=== PATIENT | male | born 1950 | race Two or more races ===

== ENCOUNTER → 2017-04-07 | Outpatient (CLI) | payer OTHER, MEDICAID ==
[~2017-04-07] VITALS: Ht 162.6 cm; Wt 61.7 kg
== END | disposition home or self-care (01) ==
LOC: Rad HDHVI 10:27
PROVIDERS: ATTEND Internal Medicine Cardiovascular Disease
DX: I10 Essential (primary) hypertension (principal); I25.10 Atherosclerotic heart disease of native coronary artery without angina pectoris; K46.9 Unspecified abdominal hernia without obstruction or gangrene; H26.9 Unspecified cataract; Z98.62 Peripheral vascular angioplasty status
CPT/HCPCS: 78452; 93017; 96374; A9500

== ENCOUNTER → 2017-04-26 | Outpatient (CLI) | payer OTHER, MEDICAID | END | disposition home or self-care (01) | LOC: Rad HDHVI 11:16 | PROVIDERS: ATTEND Internal Medicine Cardiovascular Disease | DX: I70.299 Other atherosclerosis of native arteries of extremities, unspecified extremity (principal); I25.5 Ischemic cardiomyopathy; I42.0 Dilated cardiomyopathy | CPT/HCPCS: 93926 ==

== ENCOUNTER → 2017-04-28 | Outpatient (CLI) | payer OTHER, MEDICAID | END | disposition home or self-care (01) | LOC: Rad HDHVI 09:07 | PROVIDERS: ATTEND Internal Medicine Cardiovascular Disease | DX: I08.1 Rheumatic disorders of both mitral and tricuspid valves (principal) | CPT/HCPCS: 93306 ==

== ENCOUNTER → 2017-09-19 | Outpatient (CLI) | payer OTHER, MEDICAID ==
[~2017-09-19] MED LIST: ACE3T PO; ASPI81TA27 PO; CARV3.1240 PO; CLOP75TA28 PO; FENO134C PO; FURO40TA4 PO; GLIP-115 PO; LISI-275 PO; LOVA40TA72 PO; METF-371 PO; POTA20TA53 PO; TIOTCAP IN
[2017-09-19 10:25] VITALS: BP 137/63
[2017-09-19 11:00] VITALS: BP 115/55
[2017-09-19 12:09] LABS: Basophils # (auto) 0 uL; Basophils % (auto) 0.4 % (0.0-2.0); Eosinophils # (auto) 0.3 uL; Eosinophils % (auto) 3.2 % (0.0-7.0); Hematocrit 36.7 % (41.0-53.0); Hemoglobin 12.7 g/dL (13.5-17.5); Lymphocytes % (auto) 23.7 % (10.0-50.0); Mean Corpuscular Hemoglobin 30.6 pg (28.0-32.0); Mean Corpuscular Hgb Conc. 34.5 g/dL (32.0-36.0); Mean Corpuscular Volume 88.8 fL (80.0-100.0); Monocytes # (auto) 0.6 uL; Monocytes % (auto) 7.5 % (0.0-12.0); Neutrophils # (auto) 5.5 uL; Neutrophils % (auto) 65.2 % (37.0-80.0); Platelet Count (auto) 301 10^3/uL (140-450); Red Blood Cells 4.13 10^6/uL (4.5-5.90); Red Cell Distribution Width 17.1 % (11.8-14.3); White Blood Cell 8.5 10^3/uL (4.4-10.8)
[2017-09-19 12:18] LABS: INR 0.96 (0.9-1.15); Prothrombin Time 10.3 sec (9.27-12.13)
[2017-09-19 12:55] LABS: BUN/Creatinine Ratio 28.2; Calcium 8.8 mg/dL (8.5-10.1); Potassium 3.9 mmol/L (3.5-5.1)
== END | disposition home or self-care (01) ==
LOC: Rad HDHVI 09:54
PROVIDERS: ATTEND Internal Medicine
DX: Z01.818 Encounter for other preprocedural examination (principal); I51.7 Cardiomegaly; I70.0 Atherosclerosis of aorta; E78.5 Hyperlipidemia, unspecified
CPT/HCPCS: 36415; 71046; 80048; 85025; 85610; 85730; 93005; G0463

== ENCOUNTER 2017-09-21 06:57 | Inpatient (IN) | payer OTHER, MEDICAID ==
[~2017-09-21] VITALS: Ht 162.6 cm; Wt 63.2 kg
[2017-09-21] MEDS ORDERED: IOHEXOL 350 MG/ML 100ML IJ ONE (07:22)
[2017-09-21] MEDS ORDERED: LIDOCAINE 2% (LOCAL ANESTH.) PF 5ml SDV ONE (07:22)
[2017-09-21] MEDS ORDERED: fentaNYL CITRATE 100 MCG/2 ML VL ONE (09:15)
[2017-09-21] MEDS ORDERED: ANGIOMAX 250 MG VIAL IV ONE (09:16)
[2017-09-21] MEDS ORDERED: MIDAZOLAM HCL 1MG/1ML-2 ML VIAL ONE ×2 (09:16→09:39)
[2017-09-21] MEDS ORDERED: SODIUM CHL 0.9% 50 ML ONE (09:17)
[2017-09-21] MEDS ORDERED: VERAPAMIL 2.5MG/ML INJ 2ML VIAL IV ONE ×2 (09:40→09:45)
[2017-09-21] MEDS ORDERED: HYDROcodone-ACET 5/325MG TAB PO PRN (11:15)
[2017-09-21] MEDS ORDERED: ONDANSETRON HCL 4 MG/2 ML VIAL IV PRN (11:15)
[2017-09-21] MEDS ORDERED: DEXTROSE (50%) 50ML SYRG IV PRN (11:15)
[2017-09-21] MEDS ORDERED: ACETAMINOPHEN 500 MG TAB PO PRN (11:15)
[2017-09-21] MEDS: ACCU-CHEK COMFORT CURVE STRIP VI SCH ×3 (12:00→21:43)
[2017-09-21] MEDS ORDERED: ASPirin-EC 81 mg tab PO ONE ×2 (12:00→12:15)
[2017-09-21] MEDS ORDERED: CLOPIDOGREL BISULFATE 75 MG TAB PO ONE (12:00)
[2017-09-21] MEDS: InsuLIN REG 1unit/0.01ml Soln (100units/ml) SC SCH ×3 (12:00→22:00)
[2017-09-21] MEDS ORDERED: CLOPIDOGREL BISULFATE 75 MG TAB ONE (12:07)
[2017-09-21] MEDS ORDERED: ASPirin 81 mg TAB ONE (12:08)
[2017-09-21 17:00] VITALS: BP 116/57
[2017-09-21] MEDS: glipiZIDE 5 MG TAB PO SCH (17:36)
[2017-09-21] MEDS: CARVEDILOL 3.125 MG TAB PO SCH (21:43)
[2017-09-21 22:00] VITALS: BP 101/51
[2017-09-21] MEDS ORDERED: ATORVASTATIN 20 MG TAB PO SCH (22:00)
[2017-09-22 05:00] VITALS: BP 111/60
[2017-09-22] MEDS: ACCU-CHEK COMFORT CURVE STRIP VI SCH (06:05)
[2017-09-22] MEDS: InsuLIN REG 1unit/0.01ml Soln (100units/ml) SC SCH (06:05)
[2017-09-22] MEDS: glipiZIDE 5 MG TAB PO SCH (06:58)
[2017-09-22 08:38] VITALS: BP 121/58
[2017-09-22] MEDS: CARVEDILOL 3.125 MG TAB PO SCH (09:53)
[2017-09-22] MEDS ORDERED: POTASSIUM CHL 20 Meq TABLET PO SCH (10:00)
[2017-09-22] MEDS ORDERED: CLOPIDOGREL BISULFATE 75 MG TAB PO SCH (10:00)
[2017-09-22] MEDS ORDERED: FUROSEMIDE 40 MG TAB PO SCH (10:00)
[2017-09-22] MEDS ORDERED: LISINOPRIL 5 MG TAB PO SCH (10:00)
[2017-09-22] MEDS ORDERED: TRICOR PO SCH (10:00)
[2017-09-22] MEDS ORDERED: ASPirin-EC 81 mg tab PO SCH (10:00)
[2017-09-22 12:11] VITALS: BP 115/53
[2017-09-22 12:40] VITALS: BP 115/53
== END 2017-09-22 14:30 | disposition home or self-care (01) | DRG 271 ==
LOC: CATH 06:57 → WEST WING 06:58
PROVIDERS: ADMIT Internal Medicine; ATTEND Internal Medicine
PROC: 04CL3ZZ Extirpation of Matter from Left Femoral Artery, Percutaneous Approach (ICD-10-PCS; principal; 2017-09-21)
PROC: 047L3Z1 Dilation of Left Femoral Artery using Drug-Coated Balloon, Percutaneous Approach (ICD-10-PCS; 2017-09-21)
PROC: B41G1ZZ Fluoroscopy of Left Lower Extremity Arteries using Low Osmolar Contrast (ICD-10-PCS; 2017-09-21)
PROC: B41F1ZZ Fluoroscopy of Right Lower Extremity Arteries using Low Osmolar Contrast (ICD-10-PCS; 2017-09-21)
DX: I70.212 Atherosclerosis of native arteries of extremities with intermittent claudication, left leg (principal); I74.3 Embolism and thrombosis of arteries of the lower extremities; E78.5 Hyperlipidemia, unspecified; E11.51 Type 2 diabetes mellitus with diabetic peripheral angiopathy without gangrene; I50.9 Heart failure, unspecified; F17.210 Nicotine dependence, cigarettes, uncomplicated; I11.0 Hypertensive heart disease with heart failure; Z86.73 Personal history of transient ischemic attack (TIA), and cerebral infarction without residual deficits; Z90.49 Acquired absence of other specified parts of digestive tract
CPT/HCPCS: 82962; 99152; J1815; J2250

== ENCOUNTER → 2017-12-07 | Outpatient (CLI) | payer OTHER, MEDICAID | END | disposition home or self-care (01) | LOC: Rad HDHVI 07:56 | PROVIDERS: ATTEND Internal Medicine | DX: I73.9 Peripheral vascular disease, unspecified (principal) | CPT/HCPCS: 93926 ==

== ENCOUNTER → 2017-12-20 | Outpatient (CLI) | payer OTHER, MEDICAID ==
[2017-12-20 12:21] LABS: Basophils # (auto) 0.1 uL; Basophils % (auto) 0.6 % (0.0-2.0); Eosinophils # (auto) 0.2 uL; Eosinophils % (auto) 1.9 % (0.0-7.0); Hematocrit 33.6 % (41.0-53.0); Hemoglobin 11.2 g/dL (13.5-17.5); Lymphocytes # (auto) 1.8 uL; Mean Corpuscular Hemoglobin 30.6 pg (28.0-32.0); Mean Corpuscular Hgb Conc. 33.3 g/dL (32.0-36.0); Mean Corpuscular Volume 91.9 fL (80.0-100.0); Monocytes # (auto) 0.8 uL; Monocytes % (auto) 8.9 % (0.0-12.0); Neutrophils # (auto) 5.7 uL; Neutrophils % (auto) 67.6 % (37.0-80.0); Nucleated Red Blood Cells % 0.1 %; Platelet Count (auto) 272 10^3/uL (140-450); Red Blood Cells 3.66 10^6/uL (4.5-5.90); Red Cell Distribution Width 16.3 % (11.8-14.3); White Blood Cell 8.5 10^3/uL (4.4-10.8)
== END | disposition home or self-care (01) ==
LOC: LAB 09:04
PROVIDERS: ATTEND Internal Medicine
DX: D64.9 Anemia, unspecified (principal); I50.9 Heart failure, unspecified
CPT/HCPCS: 36415; 85025

== ENCOUNTER 2023-05-02 07:43 | Day surgery (SDC) | payer OTHER, MEDICAID ==
[2023-05-02] VITALS (10 sets, daily range): BP systolic 100–120; BP diastolic 52–61; PULSE 57–69; RESP 12–16; TEMP 98.1; O2SAT 94–99
[~2023-05-02] VITALS: Ht 175.3 cm; Wt 113.4 kg
[~2023-05-02 07:43] MED LIST changes: +ASPI-543 PO; -ASPI81TA27 PO; +ATOR40TA52 PO; -FENO134C PO; +GABA-1250 PO; -GLIP-115 PO; -LOVA40TA72 PO; +POTA-220 PO; -POTA20TA53 PO; +RANO500T3 PO
[2023-05-02] MEDS ORDERED: ANGIOMAX 250 MG VIAL IV ONE (09:58)
[2023-05-02] MEDS ORDERED: fentaNYL CITRATE 100 MCG/2 ML VL ONE (09:58)
[2023-05-02] MEDS ORDERED: MIDAZOLAM HCL 2MG/2ML 2ml VIAL (1mg/ml) ONE (09:59)
[2023-05-02] MEDS ORDERED: SODIUM CHL 0.9% 0 ML ONE (09:59)
[2023-05-02] MEDS ORDERED: LIDOCAINE 2%HCL (LOCAL ANESTH.) INJ 20ML MDV ONE (10:05)
[2023-05-02] MEDS ORDERED: IODIXANOL 320MG/ML 100ML BTL IV ONE ×2 (10:05→11:10)
[2023-05-02] MEDS ORDERED: VERAPAMIL 2.5MG/ML INJ 2ML VIAL IV ONE (10:30)
== END 2023-05-02 14:13 | disposition home or self-care (01) ==
LOC: CATH 07:43
PROVIDERS: ATTEND Internal Medicine
DX: I73.9 Peripheral vascular disease, unspecified (principal); J44.9 Chronic obstructive pulmonary disease, unspecified; I08.1 Rheumatic disorders of both mitral and tricuspid valves; I50.9 Heart failure, unspecified; Z83.3 Family history of diabetes mellitus; Z80.0 Family history of malignant neoplasm of digestive organs; Z79.82 Long term (current) use of aspirin; Z72.89 Other problems related to lifestyle; Z87.891 Personal history of nicotine dependence; Z79.899 Other long term (current) drug therapy; Z98.890 Other specified postprocedural states
CPT/HCPCS: 75716; 76937; 93005; C1725; C1769; C1887; C1894; C9764; J1644; J2250; J3010; Q9967; 99152; 99153